=== PATIENT | female | born 1955 | race Caucasian/White ===

== ENCOUNTER → 2017-06-19 | Outpatient (CLI) | payer OTHER ==
[~2017-06-19] MED LIST: AMOXICILLIN/CLA1 TA1 PO; HYDROXYZINE PAM25 MG PO; LAMICTAL; LOTRONEX1 MG PO; NEURONTIN300 MG PO; POTASSIUM CL 220 MEQ PO; ULTRAM100 MG PO; ZOFRAN4 M1 PO; ZOFRAN4 MG PO
== END ==
LOC: MC.RAD 15:36
DX: Z12.31 Encounter for screening mammogram for malignant neoplasm of breast (principal)

== ENCOUNTER → 2018-07-24 | Outpatient (CLI) | payer BC | LOC: MC.RAD 11:39 | DX: Z12.31 Encounter for screening mammogram for malignant neoplasm of breast (principal) ==

== ENCOUNTER → 2019-05-17 | Outpatient (CLI) | payer BC | LOC: BHSO 12:58 | DX: F31.81 Bipolar II disorder (principal) ==

== ENCOUNTER → 2019-06-18 | Outpatient (CLI) | payer BC | LOC: BHSO 15:02 | DX: F31.81 Bipolar II disorder (principal) | CPT/HCPCS: G0463 ==

== ENCOUNTER → 2019-08-12 | Outpatient (CLI) | payer BC | LOC: MC.RAD 16:12 | DX: Z12.31 Encounter for screening mammogram for malignant neoplasm of breast (principal) ==

== ENCOUNTER → 2019-09-07 | Outpatient (CLI) | payer BC | LOC: BHSO 13:52 | DX: F31.81 Bipolar II disorder (principal) | CPT/HCPCS: G0463 ==

== ENCOUNTER → 2020-07-17 | Outpatient (CLI) | payer MEDICARE, BC | LOC: MC.RAD 11:03 | DX: Z12.31 Encounter for screening mammogram for malignant neoplasm of breast (principal) ==

== ENCOUNTER → 2021-09-05 | Outpatient (CLI) | payer MEDICARE, BC | LOC: MC.RAD 11:10 | DX: Z12.31 Encounter for screening mammogram for malignant neoplasm of breast (principal) ==

== ENCOUNTER 2022-03-15 10:02 | Day surgery (SDC) | payer MEDICARE, BC ==
[~2022-03-15] VITALS: Ht 152.4 cm; Wt 51.4 kg
[~2022-03-15 10:02] MED LIST changes: -LAMICTAL; +LAMICTAL XR300 MG PO
[2022-03-15 10:29] VITALS: BP 132/92; PULSE 96; TEMP 97.9
[2022-03-15] MEDS ORDERED: ZOFRAN 4MG T4 MG/TAB PO (10:55)
[2022-03-15] MEDS ORDERED: ATARAX 25MG25 MG/TAB PO (10:58)
[2022-03-15] MEDS ORDERED: SEROQUEL 1100 MG/TAB PO (10:59)
[2022-03-15] MEDS ORDERED: REVIA 50MG TABL50 MG PO (10:59)
[2022-03-15] MEDS ORDERED: CALCIUM 600MG+D1 TAB PO (11:00)
[2022-03-15] MEDS ORDERED: MULTI VITAMINS1 TAB PO (11:00)
[2022-03-15] MEDS ORDERED: CLIMARA 0.1 PATCH.WK TD (11:03)
[2022-03-15 12:15] VITALS: BP 144/82; PULSE 87
--- NOTE | 2022-03-15 12:15 | NUR ---
pt recieved from endo lab via cart to [facility], pt walked to chair, in room, no c/o, call light in reach, requests water only
[2022-03-15 12:30] VITALS: BP 124/81; PULSE 82
--- NOTE | 2022-03-15 12:30 | NUR ---
Dr into room to talk to pt and spouse about procedure and results.
[2022-03-15 12:45] VITALS: BP 131/74; PULSE 83
--- NOTE | 2022-03-15 12:45 | NUR ---
reviewed inst. with pt on moderate sedation, precautions and activity with verbal understanding. iv d'cd intact. pt is up and dressed discharged via w/c to car at 1250
== END 2022-03-15 12:50 | disposition home or self-care (01) ==
LOC: SDCO 10:02
DX: K52.9 Noninfective gastroenteritis and colitis, unspecified (principal); K64.0 First degree hemorrhoids; R10.9 Unspecified abdominal pain; R14.0 Abdominal distension (gaseous)
CPT/HCPCS: J2704; J7120